=== PATIENT | female | born 1995 | race Caucasian/White ===

== ENCOUNTER 2022-12-07 14:19 | Emergency (ER) | payer OTHER ==
[~2022-12-07] VITALS: Ht 152.4 cm; Wt 58.1 kg
[~2022-12-07 14:19] MED LIST: SYNTHROID50 MCG
[2022-12-07] MEDS ORDERED: SYMBICORT 16010.2 GM (14:32)
[2022-12-07] MEDS ORDERED: SYNTHROID75 MCG (14:32)
[2022-12-07] MEDS ORDERED: PROVENTIL HFA6.7 GM (14:32)
[2022-12-07] MEDS ORDERED: MAXITROL EYE DRO5 ML OP (15:45)
[2022-12-07] MEDS ORDERED: DUI500 PO (15:45)
[2022-12-07] MEDS ORDERED: TUSNEL LIQUID178 ML PO (15:49)
== END 2022-12-07 16:07 | disposition home or self-care (01) ==
LOC: ER 14:19
DX: J06.9 Acute upper respiratory infection, unspecified (principal); H10.30 Unspecified acute conjunctivitis, unspecified eye; H66.90 Otitis media, unspecified, unspecified ear; N39.0 Urinary tract infection, site not specified; R05.9 Cough, unspecified; Z20.822 Contact with and (suspected) exposure to COVID-19

== ENCOUNTER 2023-08-05 20:19 | Emergency (ER) | payer OTHER ==
[~2023-08-05] VITALS: Ht 154.9 cm; Wt 59.0 kg
[~2023-08-05 20:19] MED LIST changes: +DUI500 PO; +MAXITROL EYE DRO5 ML OP; +PROVENTIL HFA6.7 GM; +SYMBICORT 16010.2 GM; +SYNTHROID75 MCG; +TUSNEL LIQUID178 ML PO
[2023-08-05] MEDS ORDERED: SYNTHROID88 MCG (20:44)
[2023-08-05] MEDS ORDERED: ONDANSETRON HCL 2 MG/ML VIAL IV ONE (21:45)
[2023-08-05] MEDS ORDERED: LACTOBACILLUS ACIDOPHILUS 1 CAP CAP PO ONE (21:45)
[2023-08-05] MEDS ORDERED: FAMOTIDINE/PF 20 MG/2 ML VIAL IV ONE (21:45)
[2023-08-05] MEDS ORDERED: 0.9 % SODIUM CHLORIDE 1,000 ML IV ONE (21:45)
[2023-08-05 22:13] LABS: HEMATOCRIT 33.9 % (36.0-45.00); HEMOGLOBIN 11.9 g/dL (12.0-15.00); MEAN CELL VOLUME 91.4 fL (80.00-100.00); RED BLOOD COUNT 3.71 M/uL (4.00-6.00); RED CELL DISTRIBUTION WIDTH 12.7 % (11.5-14.5)
[2023-08-05 22:27] LABS: PLATELET COUNT 210 K/uL (150-450)
[2023-08-05 22:32] LABS: ALBUMIN 3.5 gm/dL (3.4-5.0); BILIRUBIN TOTAL 1.01 mg/dL (0.3-1.2); CREATININE SERUM 0.47 mg/dL (0.55-1.02); GFR 155.59; POTASSIUM 3.04 mEq/L (3.5-5.1); TOTAL PROTEIN 6.5 gm/dL (6.4-8.2)
[2023-08-05 22:33] LABS: URINE APPEARANCE Clear; URINE BILIRRUBIN Negative (NEGATIVE); URINE COLOR Dark Yellow; URINE GLUCOSE Negative (NEGATIVE); URINE LEUKOCYTE Negative; URINE NITRATE Negative
[2023-08-05 22:34] LABS: URINE BACTERIA 1408.6 uL (0.0-1933); URINE RBC 32.9 uL (0.0-20.8); URINE WBC 27.9 uL (0.0-23.2)
[2023-08-05 22:37] LABS: URINE BLOOD TRACE
[2023-08-05 22:38] LABS: URINE PROTEIN 100 (NEGATIVE)
[2023-08-06] MEDS ORDERED: HYOSCYAMINE SULFATE 0.125 MG TAB.SUBL SL ONE (01:30)
== END 2023-08-06 01:42 | disposition home or self-care (01) ==
LOC: ER 20:20
PROVIDERS: Nurse Practitioner Family
DX: A05.9 Bacterial foodborne intoxication, unspecified (principal); R11.2 Nausea with vomiting, unspecified; R10.9 Unspecified abdominal pain; R11.10 Vomiting, unspecified; Z20.822 Contact with and (suspected) exposure to COVID-19

== ENCOUNTER 2024-04-12 16:53 | Emergency (ER) | payer OTHER ==
[~2024-04-12] VITALS: Ht 152.4 cm; Wt 56.7 kg
[~2024-04-12 16:53] MED LIST changes: +SYNTHROID88 MCG
[2024-04-12] MEDS ORDERED: DEXAMETHASONE SODIUM PHOSPHATE 4 MG/ML VIAL IM STA (19:10)
[2024-04-12] MEDS ORDERED: DIPHENHYDRAMINE HCL 50 MG/ML VIAL 1ML IM STA (19:11)
[2024-04-12] MEDS ORDERED: BENADRYL ALLERG25 MG PO (19:15)
== END 2024-04-12 22:55 | disposition home or self-care (01) ==
LOC: ER 16:54
DX: R21 Rash and other nonspecific skin eruption (principal)